=== PATIENT | female | born 1985 | race Caucasian/White ===

== ENCOUNTER 2016-12-18 09:58 | Emergency (ER) | payer MEDICAID, OTHER ==
[~2016-12-18] VITALS: Ht 170.2 cm; Wt 56.7 kg
[2016-12-18 10:28] VITALS: BP 137/87
== END 2016-12-18 11:01 | disposition home or self-care (01) ==
LOC: ER 09:59
DX: N39.0 Urinary tract infection, site not specified (principal); Z91.012 Allergy to eggs